=== PATIENT | female | born 1960 | race Hispanic/Latino ===

== ENCOUNTER 2017-12-08 18:06 | Observation (INO) | payer BC ==
--- NOTE | 2017-12-08 18:27 | ED PDOC ---
Arrival/HPI <Lyudmila Gudino - Last Filed: 12/08/17 22:34> - General Historian: Patient <Aurelio Rueda - Last Filed: 12/10/17 17:10> - General Chief Complaint: Abdominal Pain Time Seen by Provider: 12/08/17 18:20 - History of Present Illness Narrative History of Present Illness (Text): 12/08/17 18:21 56 y/o female, pmh including renal stone and crohn's disease/colitis which she is on the imuran, allergic to bacitracin oinment, c/o lt. sided abdominal and flank pain this early afternoon, sharp and aching pain, associated with urinary frequency and thinks crohn flare up?, no fever or chills, pain severity 7/10, on and off, no fever or chills, no night sweat, no rash, no numbness or tingling , no palpitation, no chest pain or shortness of breath, no other medical or psychological complaints. (Aurelio Rueda) Past Medical History - Provider Review Nursing Documentation Reviewed: Yes - Reproductive Menopause: Yes - Cardiac Hx Cardiac Disorders: No - Pulmonary Hx Respiratory Disorders: No - Neurological Hx Neurological Disorder: No - HEENT Hx HEENT Disorder: No - Renal Hx Renal Disorder: No - Endocrine/Metabolic Hx Endocrine Disorders: No - Hematological/Oncological Hx Blood Disorders: No - Integumentary Hx Dermatological Disorder: No - Musculoskeletal/Rheumatological Hx Musculoskeletal Disorders: Yes Hx Degenerative Joint Disease: Yes - Gastrointestinal Hx Gastrointestinal Disorders: Yes Hx Crohn's Disease: Yes - Genitourinary/Gynecological Hx Genitourinary Disorders: Yes Hx Hematuria: Yes - Psychiatric Hx Psychophysiologic Disorder: Yes Hx Anxiety: Yes Hx Depression: Yes Hx Substance Use: No - Surgical History Hx Orthopedic Surgery: Yes - Anesthesia Hx Anesthesia Reactions: No Hx Malignant Hyperthermia: No - Suicidal Assessment Feels Threatened In Home Enviroment: No <Aurelio Rueda - Last Filed: 12/10/17 17:10> Family/Social History - Physician Review Nursing Documentation Reviewed: Yes Family/Social History: Unknown Family HX Smoking Status: Never Smoked Hx Alcohol Use: No Hx Substance Use: No <Aurelio Rueda - Last Filed: 12/10/17 17:10> Allergies/Home Meds <Lyudmila Gudino - Last Filed: 12/08/17 22:34> <Rueda,Aurelio Q - Last Filed: 12/10/17 17:10> Allergies/Adverse Reactions: Allergies bacitracin Allergy (Verified 12/08/17 18:10) RASH Home Medications: Home Meds Medication Instructions Recorded Confirmed Cholecalciferol (Vitamin D3) 5,000 iu PO DAILY 03/05/15 12/08/17 [Vitamin D3] Mesalamine [Pentasa] 2 tab PO QID 03/05/15 12/08/17 Linaclotide [Linzess] 72 mcg PO QOTHERDAY 12/08/17 12/08/17 azaTHIOprine [Imuran] 100 mg PO HS 12/08/17 12/08/17 Review of Systems - Review of Systems Constitutional: absent: Fatigue, Fevers Eyes: absent: Vision Changes ENT: absent: Hearing Changes Respiratory: absent: SOB, Cough Cardiovascular: absent: Chest Pain Gastrointestinal: Abdominal Pain, Nausea. absent: Diarrhea, Vomiting Musculoskeletal: Back Pain Skin: absent: Rash, Pruritis Neurological: absent: Headache, Dizziness Psychiatric: absent: Anxiety, Depression, Suicidal Ideation <Aurelio Rueda Q - Last Filed: 12/10/17 17:10> Physical Exam Vital Signs Reviewed: Yes Temperature: Afebrile Blood Pressure: Normal Pulse: Regular Respiratory Rate: Normal Appearance: Positive for: Well-Appearing, Non-Toxic Pain Distress: Moderate Mental Status: Positive for: Alert and Oriented X 3 - Systems Exam Head: Present: Atraumatic, Normocephalic Pupils: Present: PERRL Extroacular Muscles: Present: EOMI Conjunctiva: Present: Normal Mouth: Present: Moist Mucous Membranes Neck: Present: Normal Range of Motion Respiratory/Chest: Present: Clear to Auscultation, Good Air Exchange. No: Respiratory Distress, Accessory Muscle Use Cardiovascular: Present: Regular Rate and Rhythm, Normal S1, S2. No: Murmurs Abdomen: Present: Tenderness (epigastric and lt. upper quadrant abdomen). No: Distention, Peritoneal Signs, Rebound, Guarding Back: Present: Normal Inspection, CVA Tenderness (Left), Other (no rash). No: Midline Tenderness, Paraspinal Tenderness, Pain with Leg Raise, Decubitus Ulcer Upper Extremity: Present: Normal Inspection. No: Cyanosis, Edema Lower Extremity: Present: Normal Inspection. No: Edema Neurological: Present: GCS=15, CN II-XII Intact, Speech Normal, Motor Func Grossly Intact, Gait Normal, Memory Normal Skin: Present: Warm, Dry, Normal Color. No: Rashes Psychiatric: Present: Alert, Oriented x 3, Normal Insight, Normal Concentration <Aurelio Rueda - Last Filed: 12/10/17 17:10> Vital Signs Temp Pulse Resp BP Pulse Ox 12/08/17 20:07 72 18 125/87 100 12/08/17 18:12 97.9 F 65 16 121/70 100 Medical Decision Making <Lyudmila Gudino - Last Filed: 12/08/17 22:34> <Aurelio Rueda - Last Filed: 12/10/17 17:10> ED Course and Treatment: 12/08/17 22:[address] reviewed. No definitive ureteral stone or hydro noted. Patient with persistent left sided pain, palpable. Given persistent pain, will admit for observation, urologic and gi consultation. Patient agreeable to treatment plan. EXAM: CT Abdomen and Pelvis With Intravenous Contrast Dictated and Authenticated by: Lavonne Johnson MD 12/08/2017 9:18 PM IMPRESSION: Left pelvocaliectasis and ureterectasis, no renal or ureteral stones identified, distal left ureter not optimally visualized due to streak artifact from left hip prosthesis; fibroid uterus; no bowel obstruction Additional nonemergent findings as described above. (Lyudmila Gudino) 12/08/17 18:32 -labs/lipase/ua -CT abdomen and pelvis with IV contrast -IVF/morphine/zofran/pepcid -Observe and reassess 12/08/17 19:14 -Pt. refused morphine, request percocet, ordered. 12/08/17 19:30 -Pt. is crying and feeling anxious, takes xanax 0.5mg po at home, I ordered xanax 0.5mg po. 12/08/17 20:26 - is negative. -Labs are non-significant except BUN 27 (IVF ordered) -UA show no UTI but there is trace blood but microscopically with no visible rbc -Pending CT abdomen and pelvis. -Pain decreased and the patient is not anxious at this time -Case discussed and endorsed to the attending Dr. Lyudmila Gudino for follow up the pending labs/radiology result and dispo the patient. (Aurelio Rueda) - Lab Interpretations Lab Results: 12/08/17 19:03 12/08/17 19:03 Lab Results 12/08/17 19:03: WBC 4.4 L, RBC 4.02, Hgb 12.7, Hct 38.0, MCV 94.5, MCH 31.6, MCHC 33.4, RDW 14.9 H, Plt Count 222, MPV 12.0 H, Gran % 73.4 H, Lymph % (Auto) 14.9 L, [place] % (Auto) 9.2 H, Eos % (Auto) 2.3, Baso % (Auto) 0.2, Gran # 3.20, Lymph # (Auto) 0.7 L, [place] # (Auto) 0.4, Eos # (Auto) 0.1, Baso # (Auto) 0.01 12/08/17 19:03: Sodium 141, Potassium 4.5, Chloride 101, Carbon Dioxide 27, Anion Gap 18, BUN 27 H, Creatinine 0.8, Est GFR ( Amer) > 60, Est GFR ( Non-Af Amer) > 60, Random Glucose 78, Calcium 9.6, Magnesium 2.2, Total Bilirubin 0.6, AST 32, ALT 38, Alkaline Phosphatase 89, Total Protein 7.1, Albumin 4.3, Globulin 2.8, Albumin/Globulin Ratio 1.6, Lipase 38 12/08/17 18:30: Urine Color Yellow, Urine Appearance Clear, Urine pH 7.5, Ur Specific [place] 1.010, Urine Protein Trace H, Urine Glucose (UA) Negative, Urine Ketones Trace H, Urine Blood Trace-intact H, Urine Nitrate Negative, Urine Bilirubin Negative, Urine Urobilinogen 0.2, Ur Leukocyte Esterase Negative , Urine RBC Negative, Urine WBC 2 - 5, Ur Epithelial Cells 4 - 5, Urine Bacteria Few - RAD Interpretation Radiology Orders: 12/08/17 18:28 ABDOMEN & PELVIS [ABD & PELVIS IV CONTRAST ONLY] [CT] Stat - Medication Orders Current Medication Orders: Discontinued Medications Acetaminophen (Tylenol 325mg Tab) 650 mg PO Q6H PRN PRN Reason: Pain, moderate (4-7) Alprazolam (Xanax) 0.5 mg PO STAT STA PRN Reason: Protocol Stop: 12/08/17 19:30 Last Admin: 12/08/17 19:56 Dose: 0.5 mg Azathioprine (Imuran) 100 mg PO HS JESSI Famotidine (Pepcid) 20 mg IVP STAT STA Stop: 12/08/17 18:39 Last Admin: 12/08/17 19:21 Dose: 20 mg IVP Administration Document 12/08/17 19:21 HI (Rec: 12/08/17 19:59 HI [id number]) Charges for Administration # of IVP Administrations 1 Sodium Chloride (Sodium Chloride 0.9%) 1,000 mls @ 999 mls/hr IV .Q1H1M STA Stop: 12/08/17 19:28 Last Admin: 12/08/17 19:10 Dose: 999 mls/hr eMAR Start Stop Document 12/08/17 19:10 HI (Rec: 12/08/17 19:10 HI [id number]) Intravenous Solution Start Date 12/08/17 Start Time 19:10 Sodium Chloride (Sodium Chloride 0.9%) 1,000 mls @ 250 mls/hr IV .Q4H JESSI Last Admin: 12/08/17 21:26 Dose: 250 mls/hr eMAR Start Stop Document 12/08/17 21:26 HI (Rec: 12/08/17 21:26 HI [id number]) Intravenous Solution Start Date 12/08/17 Start Time 21:00 Dextrose/Sodium Chloride (Dextrose 5%/0.45% Ns 1000 Ml) 1,000 mls @ 100 mls/hr IV .Q10H JESSI Last Admin: 12/09/17 08:15 Dose: 100 mls/hr Comments: will not scan. eMAR Start Stop Document 12/09/17 08:15 EP (Rec: 12/09/17 15:15 EP [id number]) Intravenous Solution Start Date 12/09/17 Start Time 08:00 Morphine Sulfate (Morphine) 4 mg IVP STAT STA Stop: 12/08/17 19:05 Last Admin: 12/08/17 19:58 Dose: Not Given Non-Admin Reason: Patient Refused Non-Formulary Medication (Mesalamine [Pentasa]) 2 tab PO QID JESSI Ondansetron HCl (Zofran Inj) 4 mg IVP STAT STA Stop: 12/08/17 18:29 Last Admin: 12/08/17 19:21 Dose: 4 mg IVP Administration Document 12/08/17 19:21 HI (Rec: 12/08/17 19:59 HI [id number]) Charges for Administration # of IVP Administrations 1 Oxycodone HCl (Oxycodone Immediate Release Tab) 5 mg PO Q6H PRN PRN Reason: Pain, severe (8-10) Stop: 12/10/17 00:44 Last Admin: 12/09/17 01:33 Dose: 5 mg [facility] Pain Assessment Document 12/09/17 01:33 MAD (Rec: 12/09/17 01:34 MAD [facility] [id number] Pain Reassessment Is this a pain reassessment? Yes Sleep Is patient sleeping during reassessment? No Presence of Pain Presence of Pain Yes Location Pain Location Body Site Abdomen Back Description Description Sharp Intensity of Pain at present 7 Pain Behavior VS Changes Alleviating Factors/Management Medication Techniques Alleviating Factors Medication Re-Assess: [facility] Pain Assessment Document 12/09/17 02:33 MAD (Rec: 12/09/17 03:[address] [facility]) Pain Reassessment Is this a pain reassessment? Yes Sleep Is patient sleeping during reassessment? Yes Oxycodone/Acetaminophen (Percocet 5/325 Mg Tab) 1 tab PO STAT STA Stop: 12/08/17 19:15 Last Admin: 12/08/17 19:21 Dose: 1 tab [facility] Pain Assessment Document 12/08/17 19:21 HI (Rec: 12/08/17 19:58 HI [id number]) Pain Reassessment Is this a pain reassessment? No Sleep Is patient sleeping during reassessment? No Presence of Pain Presence of Pain Yes Location Pain Location Body Site Abdomen Re-Assess: [facility] Pain Assessment Document 12/08/17 20:21 HI (Rec: 12/08/17 21:03 HI [id number]) Pain Reassessment Is this a pain reassessment? Yes Sleep Is patient sleeping during reassessment? No Presence of Pain Presence of Pain No - PA / [employer] / Resident Statement MD/DO has reviewed & agrees with the documentation as recorded. <Aurelio Rueda - Last Filed: 12/10/17 17:10> Disposition/Present on Arrival - Disposition Patient Plan: Admission, Observation <Lyudmila Gudino - Last Filed: 12/08/17 22:34> - Present on Arrival Any Indicators Present on Arrival: No History of DVT/PE: No History of Uncontrolled Diabetes: No Urinary Catheter: No History of Decub. Ulcer: No History Surgical Site Infection Following: None - Disposition Have Diagnosis and Disposition been Completed?: Yes Disposition Time: 18:32 <Aurelio Rueda - Last Filed: 12/10/17 17:10> - Disposition Diagnosis: Dehydration, Abdominal pain Disposition: HOSPITALIZED Condition: FAIR
[2017-12-08] MEDS ORDERED: Sodium Chloride 0.9% 1,000 ML IV STA (18:28)
[2017-12-08 18:59] LABS: PH,URINE 7.5 (4.7-8.0); URINE BILIRUBIN NEGATIVE (NEGATIVE); URINE BLOOD TRACE-INTACT (NEGATIVE); URINE GLUCOSE (UA) NEGATIVE (NEGATIVE); URINE LEUKOCYTE ESTERASE NEGATIVE Leu/uL (NEGATIVE); URINE PROTEIN TRACE mg/dL (<30 mg/dL); URINE UROBILINOGEN 0.2 E.U./dL (<1 E.U./dL)
[2017-12-08 19:01] LABS: URINE APPEARANCE CLEAR (CLEAR); URINE COLOR YELLOW (YELLOW)
[2017-12-08 19:02] LABS: URINE BACTERIA FEW (NEG); URINE RBC NEGATIVE /hpf (0-2)
[2017-12-08] MEDS ORDERED: Morphine 4 mg/ml ISec IVP STA (19:04)
[2017-12-08 19:13] LABS: BASO # 0.01 K/mm3 (0.0-2.0); BASO % 0.2 % (0.0-3.0); EOS # 0.1 (0.0-0.7); EOS % 2.3 % (1.5-5.0); GRAN # 3.2 (1.4-6.5); GRAN % 73.4 % (50.0-68.0); HEMOGLOBIN 12.7 g/dL (12.0-16.0); LYMPH # 0.7 (1.2-3.4); LYMPH % 14.9 % (22.0-35.0); MEAN CELL VOLUME 94.5 fl (80.0-105.0); MEAN CORPUSCULAR HEMOGLOBIN 31.6 pg (25.0-35.0); MEAN CORPUSCULAR HGB CONC 33.4 g/dl (31.0-37.0); MONO # 0.4 (0.1-0.6); MONO % 9.2 % (1.0-6.0); RBC 4.02 10^6/uL (3.5-6.1); RED CELL DISTRIBUTION WIDTH 14.9 % (11.5-14.5); WHITE BLOOD COUNT 4.4 10^3/ul (4.5-11.0)
[2017-12-08] MEDS ORDERED: Oxycodone/Acetaminophen 5/325 mg Tab PO STA (19:14)
[2017-12-08] MEDS ORDERED: Oxycodone/Acetaminophen 5/325 mg Tab ONE (19:18)
[2017-12-08 19:20] LABS: ALB/GLOB RATIO 1.6 (1.1-1.8); ALBUMIN 4.3 g/dL (3.0-4.8); ALT/SGPT 38 U/L (7-56); AST/SGOT 32 U/L (14-36); BLOOD UREA NITROGEN 27 mg/dL (7-21); CALCIUM 9.6 mg/dL (8.4-10.5); GFR AFRICAN-AMERICAN > 60; GFR NON-AFRICAN AMERICAN > 60; LIPASE 38 U/L (23-300)
[2017-12-08] MEDS ORDERED: Iohexol 350 MG/100 ML VIAL ONE (19:33)
[2017-12-08] MEDS ORDERED: Sodium Chloride 0.9% 1,000 ML IV SCH ×2 (20:30→22:45)
[2017-12-08] MEDS ORDERED: Morphine 2 mg/ml ISec IVP STA (21:03)
[2017-12-08] MEDS ORDERED: Morphine 2 mg/2 mL syringe IVP STA (21:05)
--- NOTE | 2017-12-08 21:18 | CT ---
EXAM: CT Abdomen and Pelvis With Intravenous Contrast EXAM DATE/TIME: 12/08/2017 6:28 PM CLINICAL HISTORY: 56 years old, female; Pain; Abdominal pain; Flank; Left; Additional info: Lt. Flank and lt. Sided abdomina pain TECHNIQUE: Axial computed tomography images of the abdomen and pelvis with intravenous contrast. All CT scans at this facility use one or more dose reduction techniques, viz.: automated exposure control; ma/kV adjustment per patient size (including targeted exams where dose is matched to indication; i.e. head); or iterative reconstruction technique. Coronal and sagittal reformatted images were created and reviewed. CONTRAST: 94 mL of omnipaque 350 administered intravenously. COMPARISON: CT - ABDOMEN,PELVIS W/WO CONTRAST 2017-08-02 10:19 FINDINGS: Artifacts: Motion artifact degrades image quality.Streak artifact degrades image quality. Lung bases: Heart size is normal. There is minimal atelectasis at the lung bases. There is scarring in the middle lobe and lingula. There is a small hiatal hernia ABDOMEN: Liver: There are multiple low attenuation hepatic lesions unchanged compared to the prior study. Larger lesions are consistent with cysts. Smaller lesions are too small to characterize. Gallbladder and bile ducts: unremarkable Pancreas: unremarkable Spleen: unremarkable Adrenals: unremarkable Kidneys and ureters: There is left upper pole renal scarring, unchanged. There is left pelvocaliectasis and ureterectasis. No renal or ureteral stones are visualized. Distal left ureter is obscured by Right kidney and ureter are unremarkable. Stomach and bowel: Stomach is partially distended. Rotation is normal. Small bowel is mildly distended with fluid and air. There is no small bowel obstruction. Terminal ileum is unremarkable. Appendix is not visualized.There is no pericecal inflammation.Colon is incompletely distended which limits evaluation. PELVIS: Appendix: See stomach and bowel Bladder: Bladder is empty. Reproductive: Uterus is enlarged with heterogeneous masses. Ovaries are difficult to identify. ABDOMEN and PELVIS: Intraperitoneal space: There is no free air or free fluid. Bones/joints: There is a left hip prosthesis. There is a small bone island in the right ilium.There are no acute osseous abnormalities. There is minimal spondylosis Soft tissues: unremarkable Vasculature: There are vascular calcifications. Lymph nodes: There is no pathologic adenopathy. IMPRESSION: Left pelvocaliectasis and ureterectasis, no renal or ureteral stones identified, distal left ureter not optimally visualized due to streak artifact from left hip prosthesis; fibroid uterus; no bowel obstruction Additional nonemergent findings as described above.
--- NOTE | 2017-12-09 00:25 | CP.PCM.CON ---
History of Present Illness - History of Present Illness History of Present Illness: General Surgery consult for Dr. Lewis Consulted for abdominal pain Patient is a 56F with PMH of crohns (on imuran, pantasa, and linzess) and right nephrolithiasis s/p right ureteral stent placed by Dr. Ann who presented to the ED for a few hours of left sided flank pain radiating to the left abdomen. Patient states that the onset was sudden around 5 PM, denies any inciting event or association with food. Pain was severe for about 15 min, during which time she had a bowel movement of normal consistency and color and urinated. Pt states that pain improved but is still there so she came to the ER. Patient denies any fevers, chills, nausea, vomiting, diarrhea, dysuria, hematuria, or any other symptoms. Patient states that it feels very similar to her last renal stone. Patient also states that she has been having an asymptomatic "crohn's flare" for about a year, for which linzess was just added 2 weeks ago by her GI doctor. PMH: as above, plus anxiety and depression and left subclavian blood vessel occlusion (unsure of vein or artery) PSH: left hip surgery, left breast cyst removal ALL: topical bacitracin Review of Systems - Review of Systems All systems: reviewed and no additional remarkable complaints except Past Patient History - Past Medical History & Family History Past Medical History?: Yes Past Family History: Reviewed and not pertinent - Past Social History Smoking Status: Never Smoked - CARDIAC Hx Cardiac Disorders: No - PULMONARY Hx Respiratory Disorders: No - NEUROLOGICAL Hx Neurological Disorder: No - HEENT Hx HEENT Problems: No - RENAL Hx Chronic Kidney Disease: No - ENDOCRINE/METABOLIC Hx Endocrine Disorders: No - HEMATOLOGICAL/ONCOLOGICAL Hx Blood Disorders: No - INTEGUMENTARY Hx Dermatological Problems: No - MUSCULOSKELETAL/RHEUMATOLOGICAL Hx Musculoskeletal Disorders: Yes Hx Degenerative Joint Disease: Yes - GASTROINTESTINAL Hx Gastrointestinal Disorders: Yes Hx Crohn's Disease: Yes - GENITOURINARY/GYNECOLOGICAL Hx Genitourinary Disorders: Yes Hx Hematuria: Yes - PSYCHIATRIC Hx Psychophysiologic Disorder: Yes Hx Anxiety: Yes Hx Depression: Yes Hx Substance Use: No - SURGICAL HISTORY Hx Orthopedic Surgery: Yes - ANESTHESIA Hx Anesthesia Reactions: No Hx Malignant Hyperthermia: No Meds Allergies/Adverse Reactions: Allergies Allergy/AdvReac Type Severity Reaction Status Date / Time bacitracin Allergy RASH Verified 12/08/17 18:10 - Medications Medications: Current Medications Sodium Chloride (Sodium Chloride 0.9%) 1,000 mls @ 250 mls/hr IV .Q4H [facility] Last Admin: 12/08/17 21:26 Dose: 250 mls/hr Sodium Chloride (Sodium Chloride 0.9%) 1,000 mls @ 100 mls/hr IV .Q10H [facility] Physical Exam - Constitutional Appears: Well, Non-toxic, No Acute Distress - Head Exam Head Exam: ATRAUMATIC, NORMOCEPHALIC - Eye Exam Eye Exam: Normal appearance. absent: Conjunctival injection, Scleral icterus - ENT Exam ENT Exam: Mucous Membranes Moist, Normal Oropharynx - Respiratory Exam Respiratory Exam: NORMAL BREATHING PATTERN. absent: Accessory Muscle Use, Respiratory Distress - Cardiovascular Exam Cardiovascular Exam: RRR - GI/Abdominal Exam GI & Abdominal Exam: Soft, Tenderness (mild left upper and left lower quadrant tenderness wrapping around from left flank). absent: Distended, Mass, Rebound - Extremities Exam Extremities exam: Negative for: calf tenderness, pedal edema - Back Exam Back exam: CVA tenderness (L) (severe). absent: paraspinal tenderness, rash noted - Neurological Exam Neurological exam: Oriented x3, Reflexes Normal - Psychiatric Exam Psychiatric exam: Normal Affect, Normal Mood - Skin Skin Exam: Dry, Intact, Normal Color, Warm Results - Vital Signs Recent Vital Signs: Last Vital Signs Temp 97.9 F 12/08/17 18:12 Pulse 72 12/08/17 20:07 Resp 18 12/08/17 20:07 BP 125/87 12/08/17 20:07 Pulse Ox 100 12/08/17 20:07 - Labs Result Diagrams: 12/08/17 19:03 12/08/17 19:03 - Imaging and Cardiology CT scan - abdomen Status: Image reviewed by me, Report reviewed by me CT scan - pelvis Status: Image reviewed by me, Report reviewed by me Assessment & Plan - Assessment and Plan (Free Text) Assessment: 56F with left flank/abdominal pain, likely d/t nephrolithiasis or other renal pathology, less likely related to crohns disease Plan: No surgical intervention indicated--patient has had minimal gastrointestinal symptoms, afebrile, no lab abnormalities, exam indicative of renal pathology. Patient has history of kidney stones with findings of left pelvocaliectasis and left uretectasis on the CT, poorly visualized distal ureter, and heterogenous uterus. No overt intestinal inflammation. No other acute intra-abdominal pathology. Recommend urology consult and GI consult IVF, PRN pain medication Reach out to the surgical team for any further questions or concerns Will discuss with Dr. Joshua Cordova, PGY2
[2017-12-09] MEDS ORDERED: oxyCODONE 5 mg Immediate Release Tab PO PRN (00:44)
[2017-12-09 03:03] VITALS: BMI 19.4
[2017-12-09] MEDS ORDERED: Dextrose 5%/0.45% NS 1,000 ML IV SCH (07:00)
[2017-12-09 08:58] VITALS: PULSE 55
[2017-12-09] MEDS ORDERED: MESALAMINE PO SCH (14:00)
[2017-12-09 14:40] VITALS: BP 97/48; RESP 18; TEMP 98.4; O2SAT 100
--- NOTE | 2017-12-09 17:51 | PCM.URO ---
Urology Progress Note - Objective Lab Studies: Reviewed (gu dx; flank pain , h/o stones but none now , and feeling better ; surigical consult noted gu plans: no procedures for now , +/- for antibiotics thanks for gu consult) Intake & Output: Intake & Output 12/08/17 12/09/17 12/09/17 18:59 06:59 18:59 Intake Total 180 540 Balance 180 540 Weight 117 lb Intake: Oral 180 540 Other: Voiding Method Toilet Vital Signs: Vital Signs - 24 hr 12/09/17 12/09/17 12/09/17 01:00 02:34 08:56 Temperature 98.2 F 98.2 F 98.2 F Pulse Rate 80 61 55 L Respiratory 18 20 20 Rate Blood Pressure 125/87 109/63 91/42 L O2 Sat by Pulse 100 98 Oximetry 12/09/17 14:00 Temperature 98.4 F Pulse Rate 55 L Respiratory 18 Rate Blood Pressure 97/48 L O2 Sat by Pulse 100 Oximetry
--- NOTE | 2017-12-09 17:56 | PCM.URO ---
Urology Progress Note - Objective Lab Studies: Reviewed (from gu standpoint: no need for antibiotics and can discharge home) Intake & Output: Intake & Output 12/08/17 12/09/17 12/09/17 18:59 06:59 18:59 Intake Total 180 540 Balance 180 540 Weight 117 lb Intake: Oral 180 540 Other: Voiding Method Toilet Vital Signs: Vital Signs - 24 hr 12/09/17 12/09/17 12/09/17 01:00 02:34 08:56 Temperature 98.2 F 98.2 F 98.2 F Pulse Rate 80 61 55 L Respiratory 18 20 20 Rate Blood Pressure 125/87 109/63 91/42 L O2 Sat by Pulse 100 98 Oximetry 12/09/17 14:00 Temperature 98.4 F Pulse Rate 55 L Respiratory 18 Rate Blood Pressure 97/48 L O2 Sat by Pulse 100 Oximetry
--- NOTE | 2017-12-09 23:08 | HP ---
DATE OF EXAM: 12/09/2017 Patient is 56-year-old patient of Dr. Gaytan, covering for her. HISTORY OF PRESENT ILLNESS: Patient states yesterday afternoon she developed left flank pain radiated towards the left lower quadrant. It was similar to the renal colic that she had previously, so she came to emergency room for further evaluation. Denies any fever or chills. No history of hemoptysis. No hematemesis. She states pain was stabbing, sharp with some urinary discomfort. She was not sure if this is Crohn disease flare-up or renal colic, so she came for evaluation. PAST MEDICAL HISTORY: She has significant past medical history for: 1. Crohn disease since the age of 21. 2. History of nephrolithiasis on the right side that she had stent placed by Dr. Ann and after that she had laser shock wave treatment and passed the stone. 3. History of chronic constipation. PAST SURGICAL HISTORY: Significant for left total hip replacement that she developed osteoporosis because of chronic steroid use because of Crohn disease. ALLERGIES: SHE HAS ALLERGY TO . SOCIAL HISTORY: Denies smoking, drinking, or alcohol use. MEDICATIONS AT HOME: She is on Linzess 72 mcg daily. She is on Imuran 100 mg at bedtime. She is on Pentasa 2 tablets 4 times a day. REVIEW OF SYSTEMS: Significant for left flank pain, although on examination today, her flank pain had completely . She feels hungry and wants to go home. PHYSICAL EXAMINATION: GENERAL: She is awake, alert, oriented, communicative. VITAL SIGNS: She is afebrile, pulse 55, respirations 20, blood pressure 91/42. LUNGS: Bilateral fair airflow. No rhonchi or crackles. HEART: S1, S2 audible. ABDOMEN: Soft. nontender, no rebound, no guarding. NEUROLOGIC: Patient is awake and alert, able to communicate. LABORATORY DATA: Urine shows trace ketone, trace protein, and trace blood. WBC 4.4, hemoglobin 12.7, hematocrit 38. Chemistry, sodium 141, potassium 4.5, chloride 101, CO2 of 27, BUN 27, creatinine 0.8, blood sugar 78. CT scan of the abdomen and pelvis was done that shows left pelvocaliectasis and ureterectasis. No renal or ureteral stone identified. Distal left ureter not optimally visualized because of the hip prosthesis. PLAN: We will advance diet, since patient is asymptomatic and we will continue her on IV fluids, awaiting Dr. Ann's evaluation. We will resume her usual medications including Pentasa and Imuran, analgesic as needed and patient may be discharged after seen by Dr. Ann. Marybel Rodriguez MD
--- NOTE | 2017-12-10 03:00 | CON ---
DATE: Lexi Mg is seen. The CAT scan is reviewed personally, and I agree with the findings of the radiologist. Patient admitted for left-sided flank pain, which is mostly resolved, move mostly anteriorly, has a history of Crohn's . Reviewed the history and physical where the consult by Dr. Arabella Cordova. Discussed the patient with her and the senior resident from the service, and agree with the note, personally examined the patient. We will follow without surgical intent. Jj Lewis MD
--- NOTE | 2017-12-13 18:03 | CON ---
DATE: 12/09/2017 UROLOGY CONSULT REASON FOR THE CONSULTATION: Renal colic. HISTORY OF PRESENT ILLNESS: Ms. Galan is actually is a patient of Dr. Emiliana Ann. She has history of kidney stones. She presented now with an episode of acute onset of colic. At this point, though, she is currently pain free. On her initial imaging, she was appeared to have a stone. Since evaluation, she is feeling somewhat better in terms of analgesics used, but it is not to her knowledge, passed the stone. See the CT scan listed below. PAST MEDICAL AND SURGICAL HISTORY: She is presently under the care of Dr. Rodriguez, her general medical doctor is a doctor who does not actually come to the hospital now. See below. REVIEW OF SYSTEMS: Essentially unremarkable. SOCIAL HISTORY: Essentially unremarkable as well. All listed on the chart. PHYSICAL EXAMINATION: GENERAL: An middle-aged female. She is currently resting comfortably in her bed, in no apparent distress. VITAL SIGNS: Noted to be stable and within normal limits. ABDOMEN: Overall soft. There is no rebound, guarding. No evidence of an acute abdomen. There is no real CVA tenderness. PELVIC: Deferred. LABORATORY DATA: See chart. CT scan below. DIAGNOSES: Renal colic and has ureteral stone. ASSESSMENT AND PLAN: A pleasant lady with above history. At this point, she is feeling better, though I discussed with her various options. We are not going to do any intervention. At this point, we will discharge the patient home under the care of Dr. Rodriguez if she is medically cleared and then she will follow up with Dr. Emiliana Ann for further outpatient followup and management. In the meantime, the plan is as follows: 1. Oral hydration. 2. Analgesics as needed. 3. Screening the urine and then further plans will follow. Quan Ann MD
== END 2017-12-09 19:55 | disposition home or self-care (01) ==
LOC: ED 18:06 → ERH 22:29 → 5RNO 12-09 01:03
PROVIDERS: ADMIT Internal Medicine; ATTEND Internal Medicine
DX: N20.0 Calculus of kidney (principal); K50.90 Crohn's disease, unspecified, without complications; E86.0 Dehydration; D25.9 Leiomyoma of uterus, unspecified; Z96.642 Presence of left artificial hip joint; M81.8 Other osteoporosis without current pathological fracture; T38.0X5S Adverse effect of glucocorticoids and synthetic analogues, sequela; Z79.52 Long term (current) use of systemic steroids; Z88.3 Allergy status to other anti-infective agents; R40.2412 Glasgow coma scale score 13-15, at arrival to emergency department; Z87.442 Personal history of urinary calculi; M19.90 Unspecified osteoarthritis, unspecified site
CPT/HCPCS: 74177; 80053; 81001; 83690; 83735; 85025; 96374; 96375; 99283; G0378; J2405; J7030; J7042; Q9967